=== PATIENT | male | born 1950 | race Caucasian/White ===

== ENCOUNTER 2021-07-18 13:41 | Outpatient (CLI) | payer MEDICARE | END 2021-07-18 13:42 | disposition home or self-care (01) | LOC: SCSMRI 13:41 | PROVIDERS: ATTEND Specialist | DX: R42 Dizziness and giddiness (principal) | CPT/HCPCS: 70553; 82565 ==

== ENCOUNTER 2023-06-02 09:07 | Outpatient (CLI) | payer MEDICARE | END 2023-06-02 09:08 | disposition home or self-care (01) | LOC: BICRAD 09:07 | PROVIDERS: ATTEND Psychiatry & Neurology Neurology | DX: G60.9 Hereditary and idiopathic neuropathy, unspecified (principal); M47.816 Spondylosis without myelopathy or radiculopathy, lumbar region; M89.38 Hypertrophy of bone, other site; M48.8X6 Other specified spondylopathies, lumbar region | CPT/HCPCS: 36415; 72100; 80053; 82525; 82607; 82746; 84155; 84165; 84207; 84425; 84443; 85025; 86780 ==